=== PATIENT | female | born 1965 | race Caucasian/White ===

== ENCOUNTER → 2017-06-07 | Outpatient (CLI) | payer OTHER ==
--- NOTE | 2017-06-07 15:37 | MAMMOGRAPHY REPORT ---
UNILATERAL LEFT DIGITAL DIAGNOSTIC MAMMOGRAM TOMOSYNTHESIS WITH CAD AND TARGETED LEFT ULTRASOUND: 05/12 CLINICAL HISTORY: The patient reports intermittent pain for a few weeks in the left breast, which has improved over the last week. History of right mastectomy. Also with a benign stereotactic biopsy o f the left breast May 2016. TECHNIQUE: Breast tomosynthesis in addition to standard 2D mammography was performed. Current study was also evaluated with a Computer Aided Detection (CAD) system. Left CC and MLO 2-D and tomosynthes is images were obtained. COMPARISON: Comparison is made to exams dated: 06/05/2016 mammogram, 06/05/2016 stereotactic biopsy, mammogram, 09/28/2014 mammogram, 03/05/2013 mammogram, and 01/24/2012 mammogram - [facility]. BREAST COMPOSITION: The tissue of the left breast is heterogeneously dense, which may obscure small masses. FINDINGS: A square marker valera the site of pain in the left 9:00 breast pointed out by the patient. No suspicious masses or other suspicious abnormalities are seen in this region. A biopsy marker cli p is seen within the left upper inner quadrant from prior benign stereotactic biopsy. There is a foc al asymmetry measuring 6 mm with associated architectural distortion on the tomosynthesis images brooks cent to the biopsy marker clip, which likely represents post biopsy changes. The remainder of the le ft breast is stable compared to prior exams, without suspicious masses, calcifications, or areas of a rchitectural distortion noted. Scattered benign-appearing calcifications are not significantly mosley ed. Partially circumscribed and partially obscured 9 mm mass in the left superior breast is decrease d dating back to the 2014 exam and is therefore benign. Targeted ultrasound was performed of the area of pain pointed out by the patient involving the left 9 to 10:00 breast. No suspicious masses or other suspicious abnormalities are seen in this region. I n the left breast at 11:00, 4 cm from the nipple, there is ill-defined hypoechoic tissue which has th e appearance of post biopsy changes. This is located in the region of the prior stereotactic biopsy and therefore consistent with postsurgical changes, and likely corresponds with the architectural dis tortion seen mammographically. Superior to this in the left breast at 11:00, proximally 6 cm from th e nipple is a hypoechoic non-circumscribed 4 x 4 mm mass; no clear mammographic correlate is seen, ho wever, this is located adjacent to postbiopsy changes and could potentially represent postbiopsy sky ges/fat necrosis. However, given the prior history of right breast cancer, ultrasound guided biopsy is recommended for further evaluation. IMPRESSION: ACR BI-RADS CATEGORY 4: SUSPICIOUS, TARGETED ULTRASOUND ACR BI-RADS CATEGORY 4: SUSPICIO US 1. No suspicious mammographic or sonographic abnormality to explain intermittent left breast pain. Recommend clinical follow-up. 2. Hypoechoic non-circumscribed 4 mm mass in the left breast at 11:00. This is located adjacent to post biopsy changes and could represent postbiopsy changes/fat necrosis related to prior stereotactic biopsy. However given the focal nodular nature, it is indeterminate and ultrasound-guided core need le biopsy is recommended for further evaluation. A phone call was made to the physician's office to confirm faxed results were received. The patient has been verbally notified of the results. She tentatively scheduled the biopsy before leaving the [facility]. Approximately 10% of breast cancers are not detected with mammography. A negative mammographic report should not delay biopsy if a clinically suggestive mass is present. Qi Abad M.D. ah/:06/07/2017 14:56:50 Cardiac Tech: Liliana Liang, [facility] letter sent: Abnormal 4/5 BI-RADS Code: ACR BI-RADS Category 4: Suspicious Ultrasound BI-RADS: ACR BI-RADS Category 4: Suspici ous
== END | disposition home or self-care (01) ==
LOC: C.MAMM 14:11
PROVIDERS: ATTEND Family Medicine
DX: N64.4 Mastodynia (principal); Z90.11 Acquired absence of right breast and nipple; N63 Unspecified lump in breast

== ENCOUNTER → 2017-06-22 | Outpatient (CLI) | payer OTHER ==
--- NOTE | 2017-06-22 13:54 | Discharge Instructions ---
Discharge Instructions Procedure Procedure Date: Jun 22, 2017. Reason for visit: Left Mass. Discharge Discharge Date: Jun 22, 2017. Discharge Diagnosis: status post breast biopsy Instructions Activity Recommendations: Additional Limitations (see below) Return to School/Work: no limitations Recommended Home Diet: No Limitations Provider Instructions: ACTIVITY RECOMMENDATIONS: * No lifting, pushing, pulling or exercising the affected side for three days. RETURN TO SCHOOL/WORK: * You may return to work/school after the procedure, but do not perform any strenuous activities for 24 to 48 hours. MEDICATIONS: * Tylenol (two 325 mg) every four to six hours if needed for mild pain (if not allergic to Tylenol). DIET: * Resume previous diet. SPECIAL CARE INSTRUCTIONS: * Keep biopsy site dry for 24 hours. May shower after 24 hours, but do not soak (bathe) incision. * May remove Tegaderm (plastic patch) tomorrow AFTER showering. * Leave the steri-strips on for one week. Allow the steri-strips to fall off by themselves. If not off after one week, you may remove them. You may place a Bandaid crosswise over the strips, if desired. * Apply ice 10 minutes on and 10 minutes off as needed. * Wear a bra at bedtime to sleep more comfortably for 2-3 days. * Your referring physician should have the results after approximately 5 to 7 business days. * Call for unusual bleeding, fever, drainage, etc or if you have any questions call during normal business hours or after hours call Dr Abad, [phone]. FOLLOW UP VISIT: Follow-up with Referring Physician as scheduled. Allergies Coded Allergies: Penicillins (Verified Allergy, 10/15/09) RASH Uncoded Allergies: N (Allergy, Unknown, 10/23/02) NFA (Allergy, Unknown, 10/23/02) NO (Allergy, Unknown, 10/23/02) PENICILLAN/RASH (Allergy, Unknown, 10/23/02) Esme Chen Recommendations: Call your doctor if: * Temperature above 101 degrees * Pain not relieved by pain medicine ordered * There is increased drainage or redness from any incision * You have any unanswered questions or concerns. Your Doctors Instructions noted above were prepared by provider Qi Abad. Patient Signature Section: Patient Instructions Signature Page Emily Torre Patient (or Guardian) Signature/Date: I have read and understand the instructions given to me by my caregivers. Caregiver/RN/Doctor Signature/Date: The above-named patient and/or guardian has received patient instructions on this date. + Original Patient Signature Page (only) stays with chart. Please make copy for patient.
--- NOTE | 2017-06-22 14:11 | MAMMOGRAPHY REPORT ---
ULTRASOUND GUIDED BIOPSY LEFT BREAST: 06/22/2017 CLINICAL HISTORY: Left 11:00 breast mass. PATIENT CONSENT: The procedure, risks and benefits were discussed with the patient and informed writt en consent was obtained. A timeout was performed immediately prior to the procedure. PROCEDURE DESCRIPTION: With ultrasound guidance, aseptic technique, and lidocaine as the local anesth etic (1% lidocaine to anesthetize the skin and 1% lidocaine with epinephrine to anesthetize the deepe r tissues), the mass of concern in the left 11:00 breast was sampled 4 times with a 14-gauge Achieve biopsy needle. Immediately thereafter, a metallic localizer clip was placed at the biopsy site. Dir ect pressure was applied to the site immediately post procedure and hemostasis was achieved. Postpro cedure unilateral mammograms were performed to confirm placement of the clip in the expected location of the breast mass. The patient tolerated the procedure without complication. She was given wound care instructions. The specimens were sent to pathology for analysis. COMPARISON: Comparison is made to exams dated: 06/07/2017 ultrasound, 06/07/2017 mammogram, 06/05/2016 mammogram, 06/05/2016 stereotactic biopsy, 05/22/2016 mammogram, and 03/05/2013 mammogram - [facility]. IMPRESSION: ULTRASOUND GUIDED BIOPSY Ultrasound guided core needle biopsy of the left 11:00 breast mass, with clip placement. The patient will receive pathology results from her referring provider. Qi Abad M.D. /:06/22/2017 13:53:38 Multimedia Coordinator: Liliana Liang, [facility]
--- NOTE | 2017-06-22 15:57 | MAMMOGRAPHY REPORT ---
UNILATERAL LEFT DIGITAL DIAGNOSTIC MAMMOGRAM TOMOSYNTHESIS: 06/22/2017 CLINICAL HISTORY: Status post left breast biopsy. TECHNIQUE: Breast tomosynthesis in addition to standard 2D mammography was performed. Postprocedura l left CC and ML tomosynthesis images including C views were obtained. COMPARISON: Comparison is made to exams dated: 06/07/2017 ultrasound, 06/07/2017 mammogram, 06/05/2016 mammogram, 05/22/2016 mammogram, and 09/28/2014 mammogram - [facility]. BREAST COMPOSITION: The tissue of the left breast is heterogeneously dense, which may obscure small masses. FINDINGS: A new ribbon-shaped biopsy marker clip is seen at the site of the biopsied mass in the lef t upper inner quadrant. The biopsy marker clip is well seen on the ML view and only minimally seen o n the cc view. The biopsy marker clip is located approximately 1.9 cm superior and 1.4 cm posterior to the dumbbell-shaped biopsy marker clip from prior stereotactic biopsy. No significant postbiopsy hematoma is seen. IMPRESSION: POST PROCEDURE IMAGING FOR MARKER PLACEMENT New biopsy marker clip status post ultrasound-guided biopsy of a left 11:00 breast mass. Pathology r esults are pending. Approximately 10% of breast cancers are not detected with mammography. A negative mammographic report should not delay biopsy if a clinically suggestive mass is present. Qi Abad M.D. /:06/22/2017 14:03:16 Employment Director: Liliana Liang, [facility] BI-RADS Code: Post Procedure Imaging For Marker Placement
== END | disposition home or self-care (01) ==
LOC: C.MAMM 13:23
PROVIDERS: ATTEND Family Medicine
DX: N63.20 Unspecified lump in the left breast, unspecified quadrant (principal)